=== PATIENT | female | born 1995 | race Two or more races ===

== ENCOUNTER 2019-12-12 12:43 | Inpatient (IN) | payer MEDICAID ==
[~2019-12-12] VITALS: Ht 162.6 cm; Wt 91.6 kg
[2019-12-12] MEDS ORDERED: METHYLERGONOVINE MALEATE 0.2 MG/ML IM PRN (13:30)
[2019-12-12] MEDS ORDERED: DEXT 5%/LR + PITOCIN 20UNITS/L 1,000 ML IV PRN (13:30)
[2019-12-12] MEDS ORDERED: MISOPROSTOL 200MCG TABLET VG PRN (13:30)
[2019-12-12] MEDS ORDERED: NALOXONE HCL 0.4 MG/ML 1ML VIAL IM PRN (13:30)
[2019-12-12] MEDS ORDERED: CARBOPROST TROMETHAMINE 250 MCG/ML AMPUL IM PRN (13:30)
[2019-12-12] MEDS ORDERED: LIDOCAINE HCL 1% 20ML VIAL (Pyxis) INJ INFIL PRN (13:30)
[2019-12-12] MEDS: LACTATED RINGERS 1,000 ML IV SCH ×2 (13:50→20:32)
[2019-12-12] MEDS ORDERED: PENICILLIN G POTASSIUM 5 MMU in DEXT 5% WATER 100 ML IV SCH (14:00)
[2019-12-12 14:53] LABS: CLARITY URINE CLOUDY (CLEAR); COLOR URINE YELLOW (YELLOW); KETONES URINE 2+ (NEGATIVE); LEUKOCYTE ESTERASE URINE 1+ (NEGATIVE); NITRITE URINE NEGATIVE (NEGATIVE); OCCULT BLOOD URINE 2+ (NEGATIVE); PROTEIN URINE TRACE (NEGATIVE); SPECIFIC GRAVITY URINE 1.027 (1.005-1.030)
[2019-12-12 14:54] LABS: BASOPHILS % 0.3 % (0.0-2.0); EOSINOPHILS % 1.1 % (0.0-5.0); HEMATOCRIT. 38.6 % (36.0-48.0); HEMOGLOBIN. 13.6 g/dL (12.0-16.0); LYMPHOCYTES % 10.5 % (20.0-50.0); MEAN CORPUSCULAR HEMOGLOBIN 31.5 pg (28.0-32.0); MEAN CORPUSCULAR VOLUME 89.8 fL (81.0-99.0); MEAN PLATELET VOLUME 8.4 fl (7.4-10.4); MONOCYTES % 4.9 % (2.0-8.0); NEUTROPHILS % 83.2 % (40.0-76.0); PLATELET 253 x1000/uL (130-400); RED CELL DISTRIBUTION WIDTH 13.5 % (11.6-14.6)
[2019-12-12 15:02] LABS: INR 0.9; PARTIAL THROMBOPLASTIN TIME 26.7 sec (23.4-31.0); PROTHROMBIN TIME 9.9 sec (9.6-11.0)
[2019-12-12 15:23] LABS: *AMPHETAMINES SCREEN URINE NEGATIVE (NEGATIVE); *BARBITURATES SCREEN URINE NEGATIVE (NEGATIVE); *BENZODIAZEPINES SCREEN URINE NEGATIVE (NEGATIVE); *COCAINE SCREEN URINE NEGATIVE (NEGATIVE)
[2019-12-12 15:24] LABS: METHADONE URINE SCREEN NEGATIVE (NEGATIVE)
[2019-12-12 15:25] LABS: CANNABINOID URINE SCREEN NEGATIVE (NEGATIVE); OPIATES URINE SCREEN NEGATIVE (NEGATIVE)
[2019-12-12 15:26] LABS: PHENCYCLIDINE URINE SCREEN NEGATIVE (NEGATIVE)
[2019-12-12] MEDS ORDERED: PENICILLIN G POTASSIUM 2.5 MMU in DEXTROSE 5% WATER 50 ML IV SCH (18:00)
[2019-12-12] MEDS: BUTORPHANOL TARTRATE 2 MG/ML VIAL IV PRN (21:03)
[2019-12-13] MEDS: BUTORPHANOL TARTRATE 2 MG/ML VIAL IV PRN (00:08)
[2019-12-13] MEDS: LACTATED RINGERS 1,000 ML IV SCH (01:33)
[2019-12-13] MEDS ORDERED: ROPIVACAINE HCL 2MG/ML (0.2%) 200ML BOTTLE IR ONE (02:00)
[2019-12-13] MEDS ORDERED: EPHEDRINE SULFATE 50MG/ML VIAL ONE (02:05)
[2019-12-13] MEDS ORDERED: FENTANYL CITRATE/PF 50MCG/ML 2ML VIAL ONE (02:05)
[2019-12-13] MEDS ORDERED: BUPIVACAINE HCL/PF 0.25% (2.5MG/ML) 10ML ONE (02:05)
[2019-12-13] MEDS ORDERED: SODIUM CHLORIDE 0.9% 10ML VIAL ONE (02:06)
[2019-12-13] MEDS ORDERED: ROPIVACAINE HCL/PF 0.2% (2MG/ML) EPID 200ML EPI ONE (03:00)
[2019-12-13] MEDS ORDERED: DEXT 5%/LR + PITOCIN 20UNITS/L 1,000 ML IV SCH (06:23)
[2019-12-13] MEDS ORDERED: BISACODYL 10MG SUPP PR PRN (06:30)
[2019-12-13] MEDS ORDERED: GLYCERIN/WITCH HAZEL LEAF MEDICATED PAD TOP PRN (06:30)
[2019-12-13] MEDS ORDERED: ACETAMINOPHEN WITH CODEINE 300/30MG TABLET PO PRN ×2 (06:30)
[2019-12-13] MEDS ORDERED: LANOLIN OINT 7GM TUBE TOP PRN (06:30)
[2019-12-13] MEDS ORDERED: HEMORRHOIDAL SUPP PR PRN (06:30)
[2019-12-13] MEDS ORDERED: BENZOCAINE/LANOLIN/ALOE VERA SPRAY TOP PRN (06:30)
[2019-12-13 08:15] VITALS: BP 107/57
[2019-12-13] MEDS ORDERED: SIMETHICONE 80MG TABLET CHEW PO SCH (08:19)
[2019-12-13] MEDS: IBUPROFEN 400MG TABLET PO PRN (11:31)
[2019-12-13] MEDS: MAGNESIUM/ALUMINUM HYDROXIDE/SIMETHICONE 30ML UDC PO SCH ×4 (11:31→22:23)
[2019-12-13] MEDS: PRENATAL VIT/FE FUMARATE/FA TABLET PO SCH (11:31)
[2019-12-13 16:05] VITALS: BP 108/56
[2019-12-13 22:00] VITALS: BP 111/58
[2019-12-13] MEDS: DOCUSATE SODIUM 100MG CAPSULE PO SCH (22:24)
[2019-12-14] MEDS: IBUPROFEN 400MG TABLET PO PRN ×3 (06:30→18:11)
[2019-12-14 06:36] VITALS: BP 99/47
[2019-12-14 07:07] LABS: BASOPHILS % 0.5 % (0.0-2.0); EOSINOPHILS % 1.9 % (0.0-5.0); HEMATOCRIT. 25.5 % (36.0-48.0); HEMOGLOBIN. 8.7 g/dL (12.0-16.0); LYMPHOCYTES % 20.1 % (20.0-50.0); MEAN CORPUSCULAR HEMOGLOBIN 31.2 pg (28.0-32.0); MEAN PLATELET VOLUME 8.1 fl (7.4-10.4); MONOCYTES % 5.8 % (2.0-8.0); NEUTROPHILS % 71.7 % (40.0-76.0); PLATELET 204 x1000/uL (130-400); RED CELL DISTRIBUTION WIDTH 13.5 % (11.6-14.6)
[2019-12-14] MEDS: MAGNESIUM/ALUMINUM HYDROXIDE/SIMETHICONE 30ML UDC PO SCH ×4 (07:30→21:35)
[2019-12-14 07:53] VITALS: BP 91/57
[2019-12-14] MEDS: PRENATAL VIT/FE FUMARATE/FA TABLET PO SCH (08:47)
[2019-12-14] MEDS: FERROUS SULFATE 325MG TABLET PO SCH ×3 (08:47→18:11)
[2019-12-14 16:11] VITALS: BP 99/50
[2019-12-14] MEDS: DOCUSATE SODIUM 100MG CAPSULE PO SCH (21:35)
[2019-12-14 22:00] VITALS: BP 119/60
[2019-12-15] MEDS ORDERED: IBUP-2028 PO (07:08)
[2019-12-15 07:30] VITALS: BP 111/59
[2019-12-15] MEDS: IBUPROFEN 400MG TABLET PO PRN (08:56)
[2019-12-15] MEDS: FERROUS SULFATE 325MG TABLET PO SCH (08:56)
[2019-12-16 20:18] LABS: HEPATITIS B SURFACE ANTIGEN NEGATIVE
== END 2019-12-15 11:15 | disposition home or self-care (01) | DRG 560 ==
LOC: 8 EST LDRP 12:43 → OBSVTOIN 12:43 → 8EST 12-13 08:10
PROVIDERS: ADMIT Obstetrics & Gynecology; ATTEND Obstetrics & Gynecology
PROC: 10E0XZZ Delivery of Products of Conception, External Approach (ICD-10-PCS; principal; 2019-12-13)
PROC: 0KQM0ZZ Repair Perineum Muscle, Open Approach (ICD-10-PCS; 2019-12-13)
PROC: 3E0R3BZ Introduction of Anesthetic Agent into Spinal Canal, Percutaneous Approach (ICD-10-PCS; 2019-12-13)
PROC: 00HU33Z Insertion of Infusion Device into Spinal Canal, Percutaneous Approach (ICD-10-PCS; 2019-12-13)
DX: O69.81X0 Labor and delivery complicated by cord around neck, without compression, not applicable or unspecified (principal); O70.1 Second degree perineal laceration during delivery; Z3A.00 Weeks of gestation of pregnancy not specified; Z37.0 Single live birth
CPT/HCPCS: 36415; 80305; 81003; 85025; 86592; 86703; 86762; 86850; 86900; 87340; G0378; J0595; J2540; J2590; J2795; J3010; J3490; J7060